=== PATIENT | male | born 1975 | race Two or more races ===

== ENCOUNTER 2016-08-02 23:53 | Inpatient (IN) | payer SELFPAY ==
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
--- NOTE | ~2016-08-02 | CO ---
Unit #: [id number] #: [id number] Patient: COLIN JUAREZ [id number] [address] [place], [place] [address] [id number] I MR#: [id number] NAME: COLIN JUAREZ ROOM: [facility] Age: 43 Sex: M Admission Date: 08/03/2016 : 08/02/1973 Attending Physician: Miguel Mariee M.D. Consultation Date: 08/03/2016 CONSULTATION REPORT REASON FOR CONSULTATION Respiratory failure. HISTORY OF PRESENT ILLNESS A 43-year-old gentleman, whom we have very little if any data on was found in his hammock unresponsive. EMS was called, intubated. He currently cannot add to the history, but apparently he and his family are Hungarian-speaking only. PAST MEDICAL HISTORY Unknown. MEDICATIONS At home are unknown. ALLERGIES Unknown. SOCIAL HISTORY Unknown, but obviously he drinks. REVIEW OF SYSTEMS Unobtainable as he is on the ventilator. PHYSICAL EXAMINATION GENERAL: Reveals a gentleman, who is orally intubated on the respirator, he has a T-max of 100.8, pulse 111, respiratory rate 23, blood pressure is 99/69, 6 feet tall, 208 pounds. HEENT: Pupils are equal, round, and reactive to light. Sclerae anicteric. Head, atraumatic. NECK: Supple. No supraclavicular or cervical adenopathy appreciated. CHEST: Equal breath sounds. No wheeze, stridor, or consolidation. CARDIAC: Reveals regular rate and rhythm. No pathologic murmur, rub, or gallop. ABDOMEN: Soft and nontender. No hepatomegaly or rebound. EXTREMITIES: Reveal no clubbing, cyanosis, or edema. No calf tenderness. SKIN: Warm and dry without rash or diaphoresis. NEUROLOGIC: He is obtunded. DIAGNOSTIC STUDIES IMAGING STUDIES: Chest x-ray left lower lobe pneumonia. LABORATORY RESULTS: Arterial blood gas; pH is 7.32, pCO2 of 47, PO2 of 173 on assist control of 16, tidal volume is 600, 60%, 5 of PEEP. His BUN Unit #: [id number] #: [id number] Patient: COLIN JUAREZ 7, creatinine 0.8. Lactic acid was 3.4, now 3.1. Alcohol was 387. INR normal. White blood cell count was 9.4, now 18.7; hemoglobin 12.6; platelet count normal. Tox screen benzodiazepines, but apparently had received benzodiazepines in the ER. Urinalysis unremarkable. Blood cultures pending. No sputum or urine collected. CARDIOVASCULAR STUDIES: EKG; fairly unremarkable except for sinus tachycardia. IMPRESSION 1. Respiratory failure. 2. Overdose certainly alcohol intoxication suspected other including spice. 3. Likely left lower lobe pneumonia. 4. Elevated lactate. 5. Hypotension suspect sepsis. PLAN Ventilatory support, antibiotics for severe ICU pneumonia, ICU prophylaxis, sepsis protocol. If possible, we will try to obtain better database when possible. Dictated by... García Motley/karuna TD: 08/04/2016 01:26 JOB #: [id number] CONSULTATION REPORT Page 1 of 1 X Markel Rodriguez MD X CONSULTATION REPORT
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
--- NOTE | ~2016-08-02 | FU ---
[facility] Nutrition Therapy DATE: 08/06/16 Patient: COLIN JUAREZ Physician: MICHELLE Address: NPA/UNKNOWN Room/Bed: [address], Zip: [place] [address] Admit Date: 08/03/16 Date of : 75 Height: 6 0 Weight: 210 95.5 NUTRITION MONITORING/FOLLOW-UP: Reason: Follow up Anthropometrics: Wt 08/06: 95.5 kg Labs: No new nutrition-related labs since 08/04 Meds: Protonix, NaCl, therapeutic formula, folic acid, thiamine I&O's: 1818/4366, last BM 08/06 Skin: Reviewed, no changes noted Edema: None noted Diet: Regular Assessment: Chart reviewed, events noted. Pt remains in ICU, was extubated yesterday. Pt has been ordered a regular diet. Pt consumed ~30% of his breakfast this AM per RN report. RN reports this is likely due to a dislike of the food. Pt is speaking with MD at this time. Please see recommendations below. Nutrition problem remains with changes to etiology and evidence. Dx: Inadequate protein-energy intake RT clincal condition, possible dislike of food AEB RN reported poor intake of ~30% of breakfast. Intervention: 1. Regular diet 2. Ensure BID Monitoring, Evaluation and Goals: GOALS IN PROGRESS 1. Oral intake; tolerate >50-75% of meals and supplements 2. Labs; WNL 3. Weight; preserve lean body mass, promote gradual weight loss towards healthy BMI range Recommendations: 1. Continue regular diet. No dietary restrictions recommended at this time. 2. Continue MVI with minerals and supplemental thiamine. 3. Ensure BID for supplemental nutrition. [facility] Nutrition Therapy DATE: 08/06/16 Patient: COLIN JUAREZ Physician: MICHELLE Address: NPA/UNKNOWN Room/Bed: [address], Zip: [place] [address] Admit Date: 08/03/16 Date of : [birth year] Height: 6 0 Weight: 210 95.5 Status: Pt is at mild-moderate nutritional risk. RD will continue to follow. Respectfully, ROSALBA ALLRED RD, LD Food and Nutritional Services [facility] cc: client file
--- NOTE | ~2016-08-02 | CR72 ---
[facility] A Service of [facility] & [facility] RADIOLOGY TEXT RESULTS PATIENT: COLIN JUAREZ LOCATION: [address] : 75 UNIT #: [id number] AGE: [address]: Miguel Mariee MD SEX: M ORDER DR: [id number] [facility] [address] [place], [place] [address] [id number] I MR#: [id number] Acc #: [id number] NAME: COLIN JUAREZ : 08/02/1973 SEX: M STUDY DATE/TIME: 08/03/2016 18:09 UNIT: [facility] ROOM: [facility] STUDY DESCRIPTION: CR Chest Single View Portable Attending Physician: Miguel Mariee M.D. Ordering Physician: Ed Don Godinez M.D. Primary Care Physician: No Primary Care Physician MEDICAL IMAGING REPORT This report is preliminary unless electronic signature is present EXAM Portable chest. HISTORY SUPPLIED Dobbhoff tube placement. FINDINGS An AP view of the chest is obtained. A Dobbhoff feeding tube has been placed. It is in the midportion of the chest. The position may be either in the mid esophagus or could be actually within the trachea extending into the left mainstem bronchus. In either case, I would suggest removal. There is an increase in bibasilar atelectasis. CONCLUSION The Dobbhoff feeding tube appears to be either in the esophagus or the trachea, likely in the trachea and left mainstem bronchus. Suggest removal and replacement. Findings called to the nurse at time of dictation. Dictated by... Korey Gautam M.D. THIS IS AN ELECTRONICALLY VERIFIED REPORT Korey Gautam M.D. at 08/06/2016 7:21 AM MAIA/wilfrido TD: 08/04/2016 11:15 JOB #: [id number] MEDICAL IMAGING REPORT Page 1 of 1 COPY
--- NOTE | ~2016-08-02 | CR72 ---
[facility] A Service of [facility] RADIOLOGY TEXT RESULTS PATIENT: COLIN JUAREZ LOCATION: [address] : 75 UNIT #: [id number] AGE: [address]: Mgiuel Mariee MD SEX: M ORDER DR: [id number] [facility] [address] [place], [place] [address] [id number] I MR#: [id number] Acc #: [id number] NAME: COLIN JUAREZ : 08/02/1973 SEX: M STUDY DATE/TIME: 08/03/2016 7:00 UNIT: [facility] ROOM: [facility] STUDY DESCRIPTION: CR Chest Single View Portable Attending Physician: Miguel Mariee M.D. Ordering Physician: Aminata Ceballos M.D. MEDICAL IMAGING REPORT This report is preliminary unless electronic signature is present EXAM Portable chest 08/03/2016 HISTORY Respiratory failure, intubated today with acute onset of shortness of breath. Patient found down. Possible overdose today. FINDINGS The cardiac and mediastinal structures are stable compared with 08/02/2016. Endotracheal tube has been inserted with the tip approximately 4 cm above the tremayne. There is poor inspiratory result with infiltrate and/or atelectasis in the left lower lobe and there is discoid atelectasis at the right base. The upper lungs are clear. There are no pleural effusions. IMPRESSION 1. Poor inspiratory result with infiltrate and/or atelectasis left lower lobe. 2. Endotracheal tube tip 4 cm above the tremayne. Dictated by... Levi Fowler M.D. THIS IS AN ELECTRONICALLY VERIFIED REPORT Levi Fowler M.D. at 08/06/2016 12:18 PM KRT/pcl TD: 08/03/2016 17:37 JOB #: [id number] [facility] A Service [facility] RADIOLOGY TEXT RESULTS PATIENT: COLIN JUAREZ LOCATION: [facility]07-11 : 75 UNIT #: [id number] AGE: [address]: Miguel Mariee MD SEX: M ORDER DR: MEDICAL IMAGING REPORT Page 1 of 1 COPY
--- NOTE | ~2016-08-02 | CR72 ---
[facility] A Service of [facility] RADIOLOGY TEXT RESULTS PATIENT: ELSA JUAREZ LOCATION: [facility] [address]-89 : [birth year] UNIT #: [id number] AGE: [address]: Aminata Ceballos MD SEX: M ORDER DR: [id number] [facility] [address] [place], [place] [address] [id number] I MR#: [id number] Acc #: [id number] NAME: ELSA JUAREZ : 08/02/1973 SEX: M STUDY DATE/TIME: 08/02/2016 23:10 UNIT: [facility] ROOM: 777[address] STUDY DESCRIPTION: CR Chest Single View Portable Attending Physician: Aminata Ceballos M.D. Ordering Physician: Kvng Cantu M.D. Primary Care Physician: Primary Care Physician No MEDICAL IMAGING REPORT This report is preliminary unless electronic signature is present EXAM Portable chest, 08/02 at 23:10 INDICATIONS Endotracheal tube placement. Patient unresponsive after overdose today. FINDINGS AP portable chest was obtained. No comparison. ET tube mid trachea. Lung volumes are low. There is some mild infiltrate or atelectasis in both bases, left greater than right. Heart size normal. No visible pneumothorax. Dictated by... Christos Aguilar Jr., M.D. THIS IS AN ELECTRONICALLY VERIFIED REPORT Christos Aguilar Jr., M.D. at 08/03/2016 5:57 AM GIOVANNYK/nadira TD: 08/03/2016 03:43 JOB #: [id number] MEDICAL IMAGING REPORT Page 1 of 1 COPY
--- NOTE | ~2016-08-02 | CR72 ---
[facility] A Service of [facility] RADIOLOGY TEXT RESULTS PATIENT: COLIN JUAREZ LOCATION: [address] : 75 UNIT #: [id number] AGE: [address]: Miguel Mariee MD SEX: M ORDER DR: [id number] [facility] [address] [place] [address]. [place], [place] [address] [id number] I MR#: [id number] Acc #: [id number] NAME: COLIN JUAREZ : 1975 SEX: M STUDY DATE/TIME: 08/04/2016 5:30 UNIT: [facility] ROOM: [facility] STUDY DESCRIPTION: CR Chest Single View Portable Attending Physician: Miguel Mariee M.D. Ordering Physician: Markel Rodriguez M.D. Primary Care Physician: No Primary Care Physician MEDICAL IMAGING REPORT This report is preliminary unless electronic signature is present EXAM Portable chest 08/04/2016 HISTORY Respiratory failure and shortness of air for 3 days. COMPARISON Chest 08/03/2016 FINDINGS Frontal chest demonstrates interval repositioning of the enteric feeding tube. The tube now extends below the diaphragm and the tip is not included on the exam. Endotracheal tube is slightly high-riding with tip projecting above the clavicular heads approximately 7 cm proximal to the tremayne. No pneumothorax. Minimal bibasilar atelectasis has improved. Heart size and mediastinum within normal limits. IMPRESSION 1. Interval repositioning of enteric feeding tube. The tube now extends below the diaphragm and the tip is not included on the study. 2. Slightly high-riding endotracheal tube with tip projecting above the clavicular heads approximately 7 cm from the tremayne. 3. Slight interval improvement in minimal bibasilar atelectasis/infiltrate. Dictated by... Jeronimo Moreland M.D. THIS IS AN ELECTRONICALLY VERIFIED REPORT Jeronimo Moreland M.D. at 08/05/2016 8:11 AM ANASTASIYA/joyce [facility] A Service of [facility] RADIOLOGY TEXT RESULTS PATIENT: COLIN JUAREZ LOCATION: [facility]3-22 : 75 UNIT #: [id number] AGE: [address]: Miguel Mariee MD SEX: M ORDER DR: TD: 08/05/2016 00:22 JOB #: [id number] MEDICAL IMAGING REPORT Page 1 of 1 COPY
--- NOTE | ~2016-08-02 | CR72 ---
[facility] A Service of [facility] RADIOLOGY TEXT RESULTS PATIENT: COLIN JUAREZ LOCATION: [address] : 75 UNIT #: [id number] AGE: [address]: Miguel Mariee MD SEX: M ORDER DR: [id number] [facility] [address] [place], [place] [address] [id number] I MR#: [id number] Acc #: [id number] NAME: COLIN JUAREZ : 1975 SEX: M STUDY DATE/TIME: 08/05/2016 4:05 UNIT: [facility] ROOM: [facility] STUDY DESCRIPTION: CR Chest Single View Portable Attending Physician: Miguel Mariee M.D. Ordering Physician: Markel Rodriguez M.D. Primary Care Physician: Primary Care Physician No MEDICAL IMAGING REPORT This report is preliminary unless electronic signature is present EXAM Portable chest 08/05/2016 HISTORY Respiratory failure for 2 days. Ventilator. COMPARISON Chest 08/04/2016 FINDINGS Frontal chest demonstrates interval advancement of the endotracheal tube with tip now projecting 4 cm above the tremayne. Enteric tube is stable. No pneumothorax. Low lung volumes with mild bibasilar atelectasis/infiltrate are unchanged. Heart size and mediastinum are stable. IMPRESSION 1. Interval advancement of endotracheal tube with tip now projecting 4 cm above the tremayne. Enteric tube is stable. No pneumothorax. 2. No significant change in low lung volumes with mild bibasilar atelectasis/infiltrate. Dictated by... Jeronimo Moreland M.D. THIS IS AN ELECTRONICALLY VERIFIED REPORT Jeronimo Moreland M.D. at 08/06/2016 8:38 AM ANASTASIYA/nadira TD: 08/05/2016 19:46 JOB #: [id number] [facility] A Service of [facility] RADIOLOGY TEXT RESULTS PATIENT: COLIN JUAREZ LOCATION: [address] : 75 UNIT #: [id number] AGE: [address]: Miguel Mariee MD SEX: M ORDER DR: MEDICAL IMAGING REPORT Page 1 of 1 COPY
--- NOTE | ~2016-08-02 | US85 ---
[facility] A Service of [facility] RADIOLOGY TEXT RESULTS PATIENT: COLIN JUAREZ LOCATION: [address] : 75 UNIT #: [id number] AGE: [address]: Miguel Mariee MD SEX: M ORDER DR: [id number] [facility] [address] [place], [place] [address] [id number] I MR#: [id number] Acc #: [id number] NAME: COLIN JUAREZ : 1975 SEX: M STUDY DATE/TIME: 08/06/2016 8:56 UNIT: [facility] ROOM: [facility] STUDY DESCRIPTION: [facility] [employer] Attending Physician: Miguel Mariee M.D. Ordering Physician: Miguel Mariee M.D. MEDICAL IMAGING REPORT This report is preliminary unless electronic signature is present EXAM Venous Doppler ultrasound, left leg, 08/06/2016 HISTORY 41-year-old male with left lower extremity pain and swelling at the knee. Fell 2 days ago. TECHNIQUE Venous Doppler ultrasound examination of the left leg was performed using valle-scale, spectral Doppler and color flow Doppler ultrasound imaging. FINDINGS There is no evidence of DVT within the left leg from the groin to the lower calf. Greater saphenous vein is also patent. A large, anechoic fluid collection is present behind the knee measuring at least 9.0 cm in length and up to 6.6 x 5.3 cm axially. This most likely represents a large popliteal cyst. Hematoma is possible but less likely. IMPRESSION 1. Negative examination. No evidence of left lower extremity DVT. 2. Large anechoic fluid collection behind the left knee measuring at least 8.9 cm in size. This most likely represents a large popliteal cyst. Post-traumatic evolving hematoma is possible but less likely. STAT * RESULT Dictated by... Salvador Mcelroy M.D. [facility] A Service of [facility] & [facility] RADIOLOGY TEXT RESULTS PATIENT: COLIN JUAREZ LOCATION: [address]- : 75 UNIT #: [id number] AGE: [address]: Miguel Mariee MD SEX: M ORDER DR: THIS IS AN ELECTRONICALLY VERIFIED REPORT Salvador Mcelroy M.D. at 08/06/2016 3:54 PM Christiano TD: 08/06/2016 09:25 JOB #: [id number] MEDICAL IMAGING REPORT Page 1 of 1 COPY
--- NOTE | ~2016-08-02 | DS ---
Unit #: [id number] #: [id number] Patient: COLIN JUAREZ [id number] [address] [place], [place] [address] [id number] I MR#: [id number] NAME: COLIN JUAREZ ROOM: 577 Age: 41 Sex: M Admission Date: 08/03/2016 : 1975 Discharge Date: 08/08/2016 Attending Physician: Miguel Mariee M.D. Primary Care Physician: No Primary Care Physician DISCHARGE SUMMARY REASON FOR ADMISSION Respiratory failure. HISTORY OF PRESENT ILLNESS/HOSPITAL COURSE The patient is a 43-year-old male, with relatively unremarkable past medical history who presented after he was found by family members unconscious, as well as having apneic episodes. EMS arrived. They attempted to nasally intubate patient unsuccessful, brought to the emergency department. The patient was subsequently orally intubated, placed in the ICU. Consultation was placed to Dr. Rodriguez and associates for evaluation. Initial alcohol level was 387, urine tox was negative. Chest x-ray suspicious for infiltrates. Throughout hospital course, consideration for aspiration pneumonia, as well as drug/possible alcohol intoxication was made, although, urine tox was negative, the patient was questioned if he possibly took another substance, to which he denied later on. Throughout the hospital course, the blood cultures did return back negative. He was gradually weaned from the ventilator. His IV Zosyn was changed into p.o. Augmentin. He, otherwise, has done well from a neurological standpoint. He did complain of some left knee discomfort to which we consulted with Orthopedic Services. The patient underwent aspiration, did not reveal any bacterial growth. He subsequently complained of some right knee discomfort. He underwent an x-ray of the right knee, which did reveal a small amount of effusion at this point in time. He is clinically stable to be discharged from the hospital standpoint. His exam is, otherwise, unremarkable. He will be discharged home after social work follows up with the patient to establish primary care physician. He will also establish as an outpatient with Orthopedic services for the aforementioned bilateral knee pain and/or effusion. He will be given a prescription for Augmentin x2 additional days for consideration of possible clinical aspiration pneumonia. He was counselled extensively on discontinuing alcohol all together. At this point in time, we will discharge him home in stable condition. FINAL DISCHARGE DIAGNOSIS 1. Acute hypoxic respiratory failure, likely secondary to alcohol Unit #: [id number] #: [id number] Patient: COLIN JUAREZ intoxication versus drug overdose. 2. Alcohol abuse. 3. Bilateral knee effusions, status post aspiration of left knee effusion. DISCHARGE MEDICATIONS 1. Augmentin 875 mg p.o. b.i.d. x2 days. 2. Mobic 15 mg p.o. daily p.r.n. knee pain, #30 prescription given. 3. Multivitamin 1 tablet p.o. q.day. DISCHARGE DISPOSITION Home. FOLLOWUP PCP 7-10 days. Dictated by... García Pettit/maria elena TD: 08/08/2016 21:20 JOB #: [id number] DISCHARGE SUMMARY Page 1 of 1 X Miguel Mariee MD X DISCHARGE SUMMARY
--- NOTE | ~2016-08-02 | CT71 ---
[facility] A Service of [facility] RADIOLOGY TEXT RESULTS PATIENT: COLIN JUAREZ LOCATION: [facility]07-11 : 75 UNIT #: [id number] AGE: [address]: Miguel Mariee MD SEX: M ORDER DR: [id number] [facility] [address] [place], [place] [address] [id number] I MR#: [id number] Acc #: [id number] NAME: ELSA JUAREZ : 08/02/1973 SEX: M STUDY DATE/TIME: 08/03/2016 00:50 UNIT: CEDOF ROOM: [id number] STUDY DESCRIPTION: CT Head Wo Contrast Attending Physician: Aminata Ceballos M.D. Ordering Physician: Kvng Cantu M.D. Primary Care Physician: Primary Care Physician No MEDICAL IMAGING REPORT This report is preliminary unless electronic signature is present EXAM Head CT 08/03/2016 at 0050 hours INDICATION Patient found down tonight in yard after overdose. Patient intubated. Laceration on the right side of the head. History of drug abuse. TECHNIQUE This CT examination was performed with one or more of the following radiation dose reduction techniques: automatic exposure control, adjustment of mA and/or kV according to patient size, and iterative reconstruction. FINDINGS Axial images were obtained from base to the vertex without contrast. No comparison. Ventricular size and configuration are normal. There is no acute infarct or hemorrhage. There are no masses. There are no skull fractures. Endotracheal tube is present. Mucous retention cyst noted in the right maxillary sinus. IMPRESSION Negative head CT. Dictated by... Christos Aguilar Jr., M.D. THIS IS AN ELECTRONICALLY VERIFIED REPORT Christos Aguilar Jr., M.D. at 08/06/2016 7:22 AM COLIN/peace TD: 08/03/2016 06:56 JOB #: [id number] [facility] A Service [facility] RADIOLOGY TEXT RESULTS PATIENT: COLIN JUAREZ LOCATION: [facility]3 [facility]3-22 : 75 UNIT #: [id number] AGE: [address]: Miguel Mariee MD SEX: M ORDER DR: MEDICAL IMAGING REPORT Page 1 of 1 COPY
--- NOTE | ~2016-08-02 | CR170 ---
[facility] A Service of [facility] RADIOLOGY TEXT RESULTS PATIENT: COLIN JUAREZ LOCATION: [facility] [place] [facility] 577-01 : 75 UNIT #: [id number] AGE: [address]: Miguel Mariee MD SEX: M ORDER DR: [id number] [facility] [address] [facility] [place], [place] [address] [id number] I MR#: [id number] Acc #: [id number] NAME: COLIN JUAREZ : 1975 SEX: M STUDY DATE/TIME: 08/07/2016 13:42 UNIT: [facility] [place] [facility] ROOM: [facility] STUDY DESCRIPTION: CR Knee 2 Views Rt Attending Physician: Miguel Mariee M.D. Ordering Physician: Miguel Mariee M.D. Primary Care Physician: No Primary Care Physician MEDICAL IMAGING REPORT This report is preliminary unless electronic signature is present EXAM Right knee 08/07/2016 INDICATIONS Knee pain today. No trauma. Prior history of knee infection. FINDINGS 2 views of the right knee were obtained. No fracture or malalignment is seen. There is a joint effusion. No erosive changes are identified. IMPRESSION Small to moderate joint effusion; otherwise, negative right knee. Dictated by... Christos Aguilar Jr., M.D. THIS IS AN ELECTRONICALLY VERIFIED REPORT Christos Aguilar Jr., M.D. at 08/08/2016 7:53 AM COLIN/ema TD: 08/07/2016 17:44 JOB #: [id number] MEDICAL IMAGING REPORT Page 1 of 1 COPY
--- NOTE | ~2016-08-02 | CT52 ---
[facility] A Service of [facility] RADIOLOGY TEXT RESULTS PATIENT: COLIN JUAREZ LOCATION: [address]07-11 : 75 UNIT #: [id number] AGE: [address]: Miguel Mariee MD SEX: M ORDER DR: [id number] [facility] [address] [facility]. [place], [place] [address] [id number] I MR#: [id number] Acc #: [id number] NAME: ELSA JUAREZ : 08/02/1973 SEX: M STUDY DATE/TIME: 08/03/2016 00:47 UNIT: CEDOF ROOM: [id number] STUDY DESCRIPTION: CT Cervical Spine Wo Cont Attending Physician: Aminata Ceballos M.D. Ordering Physician: Kvng Cantu M.D. Primary Care Physician: Primary Care Physician No MEDICAL IMAGING REPORT This report is preliminary unless electronic signature is present EXAM Cervical spine CT 08/03 at 04:47 INDICATIONS Patient found down in yard today. Patient intubated and unresponsive. History of drug abuse. Patient cannot give additional history. TECHNIQUE Axial images were obtained through the cervical spine without contrast. Multiplanar reformats were obtained. No comparison. This CT exam was performed with one or more of the following radiation dose reduction techniques: automatic exposure control, adjustment of mA and/or kV according to patient size, and iterative reconstruction. FINDINGS Endotracheal tube appears well positioned. There is no fracture or malalignment. No significant disc bulging or herniation is seen. There is no central canal or neural foraminal stenosis. IMPRESSION Normal cervical spine CT. Well-positioned ET tube. Dictated by... Christos Aguilar Jr., M.D. THIS IS AN ELECTRONICALLY VERIFIED REPORT Christos Aguilar Jr., M.D. at 08/06/2016 7:22 AM COLIN/mau TD: 08/03/2016 06:54 JOB #: [id number] [facility] A Service of [facility] RADIOLOGY TEXT RESULTS PATIENT: COLIN JUAREZ LOCATION: [address]3-22 : 75 UNIT #: [id number] AGE: [address]: Miguel Mariee MD SEX: M ORDER DR: MEDICAL IMAGING REPORT Page 1 of 1 COPY
--- NOTE | ~2016-08-02 | CR72 ---
[facility] A Service of [facility] RADIOLOGY TEXT RESULTS PATIENT: COLIN JUAREZ LOCATION: [facility] [address] : 75 UNIT #: [id number] AGE: [address]: Miguel Mariee MD SEX: M ORDER DR: [id number] [facility] [address] [facility]. [place], [place] [address] [id number] I MR#: [id number] Acc #: [id number] NAME: COLIN JUAREZ : 1975 SEX: M STUDY DATE/TIME: 08/06/2016 9:13 UNIT: [facility] ROOM: [facility] STUDY DESCRIPTION: CR Chest Single View Portable Attending Physician: Miguel Mariee M.D. Ordering Physician: Miguel Mariee M.D. Primary Care Physician: Primary Care Physician No MEDICAL IMAGING REPORT This report is preliminary unless electronic signature is present EXAM AP portable chest HISTORY SUPPLIED Post extubation. Ventilator management. FINDINGS An AP view is obtained. The patient has been extubated and nasoenteric tube removed. Heart size is normal. There is some discoid atelectasis in the right base which is improved. CONCLUSION Interim extubation. Mild right basilar discoid atelectasis. Dictated by... Korey Gautam M.D. THIS IS AN ELECTRONICALLY VERIFIED REPORT Korey Gautam M.D. at 08/07/2016 7:32 AM MAIA/andrew TD: 08/06/2016 11:02 JOB #: [id number] MEDICAL IMAGING REPORT Page 1 of 1 COPY
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
--- NOTE | ~2016-08-02 | CR169 ---
[facility] A Service of [facility] RADIOLOGY TEXT RESULTS PATIENT: COLIN JUAREZ LOCATION: [facility] [address] : 75 UNIT #: [id number] AGE: [address]: Miguel Mariee MD SEX: M ORDER DR: [id number] [address] [place], [place] [address] [id number] I MR#: [id number] Acc #: [id number] NAME: COLIN JUAREZ : 1975 SEX: M STUDY DATE/TIME: 08/06/2016 15:05 UNIT: [facility] ROOM: [facility] STUDY DESCRIPTION: CR Knee 2 Views Lt Attending Physician: Miguel Mariee M.D. Ordering Physician: Annika Ramirez M.D. Primary Care Physician: No Primary Care Physician MEDICAL IMAGING REPORT This report is preliminary unless electronic signature is present EXAM 2 views left knee 08/06/2016 INDICATIONS 41-year-old male with pain in the left knee for 3 days and swelling. TECHNIQUE 2 views. COMPARISON No comparisons. FINDINGS Mineralization within normal limits. No acute fracture. Small joint effusion. Incidental fabella. IMPRESSION Nonspecific small joint effusion. Otherwise, negative left knee. Dictated by... Jr Martel M.D. THIS IS AN ELECTRONICALLY VERIFIED REPORT Jr Martel M.D. at 08/06/2016 10:46 PM Sindi TD: 08/06/2016 17:04 JOB #: [id number] MEDICAL IMAGING REPORT Page 1 of 1 COPY
--- NOTE | ~2016-08-02 | EE ---
Unit #: [id number] #: [id number] Patient: COLIN JUAREZ [id number] [address] [address] [id number] I MR#: [id number] NAME: COLIN JUAREZ : 1975 SEX: M STUDY DATE/TIME: 08/03/2016 UNIT: [facility] ROOM: [facility] STUDY DESCRIPTION: EEG Attending Physician: Miguel Mariee M.D. Referring Physician: Miguel Mariee M.D. Primary Care Physician: No Primary Care Physician NEURODIAGNOSTICS REPORT PROCEDURE PERFORMED EEG. REASON FOR STUDY Respiratory failure. EEG DESCRIPTION This is an inpatient, ER, digitally recorded, multi-montage, adult EEG with leads placed according to the International 10-20 system. Hyperventilation and photic stimulation do not seem to have been done. PROCEDURE REPORT This EEG shows 9-10 Hz posterior background. There were some transients seen between C3 and P3. At times correlation with EKG was seen. Other times it looks like transients of sleep in the centroparietal region on both sides. Nothing clearly suggesting clearcut interictal discharges or clinical events. The patient did fall asleep, and stage II sleep was seen. I do not see any mention of hyperventilation or photic stimulation or the patient's clinical condition. IMPRESSION This EEG looks normal with normal waveforms. There were some transients seen on the left side, which are nonspecific. Please clinically correlate with the patient's history and imaging studies and treat as indicated. Dictated by... García Millan/bear TD: 08/06/2016 08:40 JOB #: [id number] Unit #: [id number] #: [id number] Patient: COLIN JUAREZ NEURODIAGNOSTICS REPORT Page 1 of 1 X Jay Castillo MD NEURODIAGNOSTICS REPORT
--- NOTE | ~2016-08-02 | EKG ---
PATIENT: ELSA JUAREZ UNIT #: [id number] Ventricular Rate: 109 BPM Atrial Rate: 109 BPM P-R Interval: 164 ms QRS Duration: 104 ms Q-T Interval: 330 ms QTC Calculation(Bezet): 444 ms P Gilbert: 38 degrees Calculated R Gilbert: -2 degrees Calculated T Gilbert: 9 degrees Diagnosis Line: Sinus tachycardia Diagnosis Line: Otherwise normal ECG Diagnosis Line: No previous ECGs available Diagnosis Line: Confirmed by RAMA NUNEZ MD ([id number]) on Diagnosis Line: 08/04/2016 4:45:11 PM INTERPRETING MD: CARLENE
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
[2016-08-02 23:07] LABS: ARTERIAL BLOOD GAS CARBOXY HB 0.7 %sat (0.0-9.0); ARTERIAL BLOOD GAS HCO3 25.9 mmol/L; ARTERIAL BLOOD GAS MET HB 0.9 %sat (0.0-2.0); ARTERIAL BLOOD GAS pH 7.305 (7.350-7.450)
[2016-08-02 23:28] LABS: BASOPHIL# 0.1 X10e3 (0-0.3); EOSINOPHIL# 0.6 X10e3 (0-0.7); EOSINOPHIL% 6.9 % (0.0-7.0); HEMATOCRIT 42.7 % (38.0-50.0); HEMOGLOBIN 13.8 gm/dL (13.0-16.0); LYMPHOCYTE# 5.2 X10e3 (1.0-3.5); LYMPHOCYTE% 55.1 % (17.0-45.0); MEAN CELL VOLUME 87.7 FL (83-96); MEAN CORPUSCULAR HEMOGLOBIN 28.2 PG (28-34); MEAN CORPUSCULAR HGB CONC 32.2 g/dL (30-36); MEAN PLATELET VOLUME 8.9 FL (6.5-11.5); MONOCYTE# 0.5 X10e3 (0-1.0); MONOCYTE% 5.7 % (3.0-12.0); NEUTROPHIL# 2.9 X10e3 (1.5-7.1); NEUTROPHIL% 31.3 % (40-75); PLATELET COUNT 309 X10e3 (140-420); RED BLOOD COUNT 4.87 X10e (3.90-5.60); RED CELL DISTRIBUTION WIDTH 16.1 % (11.0-15.5); WHITE BLOOD COUNT 9.4 X10e3 (4.0-10.5)
[2016-08-02 23:29] LABS: DIFF IND YES
[2016-08-02 23:37] LABS: PARTIAL THROMBOPLASTIN TIME 23.8 SECONDS (23.5-31.3); PROTHROMBIN TIME (PATIENT) 10.5 SECONDS (9.6-11.5)
[2016-08-02 23:38] LABS: ARTERIAL BLOOD GAS ALLEN TEST N; ARTERIAL BLOOD GAS ART SITE LEFT FEMORAL; ARTERIAL DRAW? YES
[2016-08-02 23:39] LABS: ARTERIAL BLOOD GAS DELIVERY VENT; ARTERIAL BLOOD GAS VENT MODE AC
[2016-08-02 23:52] LABS: ACETAMINOPHEN <10 ug/mL; ALKALINE PHOSPHATASE 73 U/L (32-92); ALT (SGPT) 34 U/L (10-40); AST (SGOT) 66 U/L (10-42); BILIRUBIN,TOTAL 0.8 mg/dL (0.2-2.0); BLOOD UREA NITROGEN 7 mg/dL (9-23); CALCIUM SERUM 8.5 mg/dL (8.4-10.2); CARBON DIOXIDE 24 mmol/L (22-31); CHLORIDE 104 mmol/L (100-111); GLOM FILT RATE Estimated 91.8 mL/min (>60); GLUCOSE FASTING 138 mg/dL (70-110); POTASSIUM 3.6 mmol/L (3.5-5.1); PROTEIN TOTAL SERUM 7.3 g/dL (6.0-8.3); SALICYLATE <4.0 mg/dL; SODIUM 141 mmol/L (135-145); URINE APPEARANCE CLEAR; URINE BILIRUBIN NEG (NEG); URINE BLOOD NEG (NEG); URINE COLOR YELLOW; URINE GLUCOSE NEG (NEG); URINE KETONE NEG (NEG); URINE LEUKOCYTE ESTERASE NEG (NEG); URINE NITRATE NEG (NEG); URINE PH 5.5 (5-8); URINE PROTEIN NEG (NEG); URINE SPECIFIC GRAVITY 1.003 (1.003-1.035); URINE UROBILINOGEN 0.2 MG/DL (NEG)
[2016-08-02 23:54] LABS: ALCOHOL BLOOD 387 mg/dL (0)
[2016-08-02 23:54] LABS: POC - CKMB 1.7 ng/mL (0.0-7.9); POC - TROPONIN <0.05 ng/mL (<=0.05)
[2016-08-02 23:55] LABS: ANISOCYTOSIS SL; PLATELET ESTIMATE NORMAL (NORMAL)
[2016-08-02 23:56] LABS: CULTURE INDICATED? NO
[2016-08-03 00:12] LABS: AMPHETAMINE NEG (NEG); BARBITURATES NEG (NEG); BENZODIAZEPINES NEG (NEG); COCAINE NEG (NEG); MARIJUANA NEG (NEG); OPIATES NEG (NEG); TRICYCLIC ANTIDEPRESSANTS NEG (NEG); U METHADONE NEG (NEG)
[2016-08-03 03:27] LABS: AMPHETAMINE NEG (NEG); BARBITURATES NEG (NEG); BENZODIAZEPINES POS (NEG); COCAINE NEG (NEG); MARIJUANA NEG (NEG); OPIATES NEG (NEG); TRICYCLIC ANTIDEPRESSANTS NEG (NEG); U METHADONE NEG (NEG)
[2016-08-03 03:37] LABS: ARTERIAL BLD GAS O2 SATURATION 97.5 % (90.0-100.0); ARTERIAL BLOOD GAS CARBOXY HB 0.4 %sat (0.0-9.0); ARTERIAL BLOOD GAS HCO3 25.1 mmol/L; ARTERIAL BLOOD GAS MET HB 1.3 %sat (0.0-2.0); ARTERIAL BLOOD GAS PCO2 47.6 mmHg (35.0-45.0); ARTERIAL BLOOD GAS pH 7.329 (7.350-7.450)
[2016-08-03 03:38] LABS: ARTERIAL BLOOD GAS ART SITE LEFT FEMORAL; ARTERIAL BLOOD GAS DELIVERY VENT; ARTERIAL BLOOD GAS VENT MODE AC; ARTERIAL DRAW? YES
[2016-08-03 08:00] LABS: ALBUMIN SERUM 3.3 g/dL (3.5-5.0); BILIRUBIN,TOTAL 0.4 mg/dL (0.2-2.0); BUN/CREATININE RATIO 8.75; CREATININE SERUM 0.8 mg/dL (0.6-1.4); GLOM FILT RATE Estimated 109.5 mL/min (>60); POTASSIUM 4.3 mmol/L (3.5-5.1); PROTEIN TOTAL SERUM 6.1 g/dL (6.0-8.3)
[2016-08-03 08:19] LABS: %MB 1.4 % (0.0-4.0); MB 3.7 ng/ml
[2016-08-03 08:38] LABS: BASOPHIL% 0.1 % (0-2.5); EOSINOPHIL# 0.1 X10e3 (0-0.7); EOSINOPHIL% 0.3 % (0.0-7.0); HEMATOCRIT 39.3 % (38.0-50.0); HEMOGLOBIN 12.6 gm/dL (13.0-16.0); LYMPHOCYTE% 5.3 % (17.0-45.0); MEAN CELL VOLUME 88.2 FL (83-96); MEAN CORPUSCULAR HEMOGLOBIN 28.1 PG (28-34); MEAN CORPUSCULAR HGB CONC 31.9 g/dL (30-36); MEAN PLATELET VOLUME 8.9 FL (6.5-11.5); MONOCYTE# 1.1 X10e3 (0-1.0); MONOCYTE% 5.6 % (3.0-12.0); NEUTROPHIL# 16.6 X10e3 (1.5-7.1); NEUTROPHIL% 88.7 % (40-75); PLATELET COUNT 247 X10e3 (140-420); RED BLOOD COUNT 4.46 X10e (3.90-5.60); RED CELL DISTRIBUTION WIDTH 16.2 % (11.0-15.5)
[2016-08-03 08:40] LABS: WHITE BLOOD COUNT 18.7 X10e3 (4.0-10.5)
[2016-08-03 08:43] LABS: DIFF IND YES
[2016-08-03 09:32] LABS: ANISOCYTOSIS SL; PLATELET ESTIMATE NORMAL (NORMAL); RBC NORMAL YES
[2016-08-03] MEDS ORDERED: NO MEDICATIONS (09:33)
[2016-08-03 10:24] LABS: ARTERIAL BLD GAS O2 SATURATION 97.3 % (90.0-100.0); ARTERIAL BLOOD GAS HCO3 26.3 mmol/L; ARTERIAL BLOOD GAS MET HB 1.1 %sat (0.0-2.0); ARTERIAL BLOOD GAS PCO2 41.9 mmHg (35.0-45.0); ARTERIAL BLOOD GAS pH 7.407 (7.350-7.450)
[2016-08-03 10:25] LABS: ARTERIAL BLOOD GAS ALLEN TEST NORMAL; ARTERIAL BLOOD GAS ART SITE LEFT RADIAL; ARTERIAL DRAW? YES
[2016-08-03 10:26] LABS: ARTERIAL BLOOD GAS DELIVERY VENT; ARTERIAL BLOOD GAS VENT MODE AC
[2016-08-04 03:54] LABS: ARTERIAL BLD GAS O2 SATURATION 97.5 % (90.0-100.0); ARTERIAL BLOOD GAS CARBOXY HB 0.5 %sat (0.0-9.0); ARTERIAL BLOOD GAS MET HB 1.2 %sat (0.0-2.0); ARTERIAL BLOOD GAS PCO2 41.8 mmHg (35.0-45.0); ARTERIAL BLOOD GAS pH 7.434 (7.350-7.450)
[2016-08-04 04:03] LABS: ARTERIAL BLOOD GAS ALLEN TEST NORMAL; ARTERIAL BLOOD GAS ART SITE LEFT RADIAL; ARTERIAL BLOOD GAS DELIVERY VENT; ARTERIAL BLOOD GAS VENT MODE AC; ARTERIAL DRAW? YES
[2016-08-04 05:46] LABS: BASOPHIL% 0.4 % (0-2.5); EOSINOPHIL# 0.2 X10e3 (0-0.7); LYMPHOCYTE# 1.7 X10e3 (1.0-3.5); LYMPHOCYTE% 14.5 % (17.0-45.0); MEAN CORPUSCULAR HEMOGLOBIN 28.2 PG (28-34); MEAN CORPUSCULAR HGB CONC 32.4 g/dL (30-36); MEAN PLATELET VOLUME 8.9 FL (6.5-11.5); MONOCYTE# 0.7 X10e3 (0-1.0); MONOCYTE% 5.8 % (3.0-12.0); NEUTROPHIL# 8.8 X10e3 (1.5-7.1); NEUTROPHIL% 77.3 % (40-75); PLATELET COUNT 206 X10e3 (140-420); RED BLOOD COUNT 4.25 X10e (3.90-5.60); RED CELL DISTRIBUTION WIDTH 15.8 % (11.0-15.5); WHITE BLOOD COUNT 11.4 X10e3 (4.0-10.5)
[2016-08-04 05:53] LABS: DIFF IND NO
[2016-08-04 06:43] LABS: BILIRUBIN,TOTAL 1.2 mg/dL (0.2-2.0); CALCIUM SERUM 8.4 mg/dL (8.4-10.2); GLOM FILT RATE Estimated 91.8 mL/min (>60); MAGNESIUM 1.7 mg/dL (1.6-3.0); PHOSPHOROUS 2.8 mg/dL (2.5-4.6); POTASSIUM 4.1 mmol/L (3.5-5.1); PROTEIN TOTAL SERUM 6.2 g/dL (6.0-8.3)
[2016-08-05 10:02] LABS: ARTERIAL BLD GAS O2 SATURATION 97.2 % (90.0-100.0); ARTERIAL BLOOD GAS ALLEN TEST NORMAL; ARTERIAL BLOOD GAS ART SITE RIGHT RADIAL; ARTERIAL BLOOD GAS DELIVERY VE; ARTERIAL BLOOD GAS HCO3 29.2 mmol/L; ARTERIAL BLOOD GAS MET HB 0.9 %sat (0.0-2.0); ARTERIAL BLOOD GAS PCO2 44.6 mmHg (35.0-45.0); ARTERIAL BLOOD GAS pH 7.425 (7.350-7.450); ARTERIAL DRAW? YES
[2016-08-05 10:03] LABS: ARTERIAL BLOOD GAS VENT MODE CPAP
[2016-08-06 10:57] LABS: URINE APPEARANCE CLEAR; URINE BLOOD NEG (NEG); URINE COLOR DK YELLOW; URINE GLUCOSE NEG (NEG); URINE KETONE 3+ (NEG); URINE LEUKOCYTE ESTERASE NEG (NEG); URINE NITRATE NEG (NEG); URINE PH 6.5 (5-8); URINE PROTEIN 1+ (NEG); URINE SPECIFIC GRAVITY 1.036 (1.003-1.035)
[2016-08-06 10:58] LABS: BASOPHIL# 0.1 X10e3 (0-0.3); BASOPHIL% 0.5 % (0-2.5); DIFF IND NO; EOSINOPHIL# 0.1 X10e3 (0-0.7); EOSINOPHIL% 0.5 % (0.0-7.0); HEMATOCRIT 39.2 % (38.0-50.0); HEMOGLOBIN 12.8 gm/dL (13.0-16.0); MEAN CELL VOLUME 87.9 FL (83-96); MEAN CORPUSCULAR HEMOGLOBIN 28.6 PG (28-34); MEAN CORPUSCULAR HGB CONC 32.6 g/dL (30-36); MEAN PLATELET VOLUME 9.6 FL (6.5-11.5); MONOCYTE# 0.9 X10e3 (0-1.0); MONOCYTE% 6.3 % (3.0-12.0); NEUTROPHIL# 12.2 X10e3 (1.5-7.1); NEUTROPHIL% 85.7 % (40-75); PLATELET COUNT 214 X10e3 (140-420); RED BLOOD COUNT 4.47 X10e (3.90-5.60); RED CELL DISTRIBUTION WIDTH 15.8 % (11.0-15.5); WHITE BLOOD COUNT 14.3 X10e3 (4.0-10.5)
[2016-08-06 11:00] LABS: URBCS1 AUWI 0-2 /[HPF] (0-2); URINE BACTERIA AUWI NEG (NEGATIVE); URINE SQUAMOUS EPITHELIAL CELL NONE SEEN /[HPF]; UWBCS1 AUWI 0-2 (0-5)
[2016-08-06 11:03] LABS: URINE BILIRUBIN NEG (NEG)
[2016-08-06 14:51] LABS: BODY FLUID SOURCE SYNOVIAL
[2016-08-06 14:52] LABS: BODY FLUID APPEARANCE HAZY
[2016-08-06 16:36] LABS: BF CRYSTAL EXAM NO CRYSTALS SEEN
[2016-08-06 17:26] LABS: BF TOTAL NUCLEATED CELL COUNT 37703 CMM (0-100); BODY FLUID RBC <10000 CMM
[2016-08-07 05:39] LABS: BASOPHIL% 0.3 % (0-2.5); EOSINOPHIL# 0.1 X10e3 (0-0.7); EOSINOPHIL% 0.8 % (0.0-7.0); HEMATOCRIT 38.1 % (38.0-50.0); HEMOGLOBIN 12.4 gm/dL (13.0-16.0); LYMPHOCYTE# 1.3 X10e3 (1.0-3.5); LYMPHOCYTE% 10.5 % (17.0-45.0); MEAN CELL VOLUME 86.8 FL (83-96); MEAN CORPUSCULAR HEMOGLOBIN 28.4 PG (28-34); MEAN CORPUSCULAR HGB CONC 32.6 g/dL (30-36); MEAN PLATELET VOLUME 9.2 FL (6.5-11.5); MONOCYTE% 7.7 % (3.0-12.0); NEUTROPHIL# 10.2 X10e3 (1.5-7.1); NEUTROPHIL% 80.7 % (40-75); PLATELET COUNT 222 X10e3 (140-420); RED BLOOD COUNT 4.38 X10e (3.90-5.60); RED CELL DISTRIBUTION WIDTH 15.5 % (11.0-15.5); WHITE BLOOD COUNT 12.6 X10e3 (4.0-10.5)
[2016-08-07 05:47] LABS: DIFF IND NO
[2016-08-07 06:55] LABS: CALCIUM SERUM 8.9 mg/dL (8.4-10.2); GLOM FILT RATE Estimated 93.1 mL/min (>60); POTASSIUM 3.5 mmol/L (3.5-5.1)
[2016-08-07 07:30] LABS: HA AB IGM (HEPPAN) Nonreactive (()); HB CORE AB IGM (HEPPAN) Nonreactive (Nonreactive); HB S AG (HEPPAN) Nonreactive (Nonreactive); HEP C AB (HEPPAN) Nonreactive (Nonreactive); HEP C AB SIGNAL TO CUTOFF 0.03 ratio (<1.00)
[2016-08-08 11:52] LABS: BF CRYSTAL EXAM URIC ACID; BODY FLUID APPEARANCE TURBID; BODY FLUID SOURCE SYNOVIAL
[2016-08-08 11:53] LABS: BF TOTAL NUCLEATED CELL COUNT 22500 CMM (0-100)
[2016-08-08 11:54] LABS: BODY FLUID RBC 238 CMM
[2016-08-08] MEDS ORDERED: AUGMENTIN PO (12:55)
[2016-08-08] MEDS ORDERED: MOBIC15 MG PO (12:57)
== END 2016-08-08 15:57 | disposition home or self-care (01) | DRG 896 ==
LOC: CED 23:53 → CEDOF 08-03 02:45 → CICCU3 08-03 09:05 → C5C 08-06 22:39
PROVIDERS: Emergency Medicine; Family Medicine; Internal Medicine; Orthopaedic Surgery
PROC: 0BH17EZ Insertion of Endotracheal Airway into Trachea, Via Natural or Artificial Opening (ICD-10-PCS; principal; 2016-08-03)
PROC: 5A1945Z Respiratory Ventilation, 24-96 Consecutive Hours (ICD-10-PCS; 2016-08-03)
PROC: 0SBD3ZX Excision of Left Knee Joint, Percutaneous Approach, Diagnostic (ICD-10-PCS; 2016-08-06)
DX: F10.129 Alcohol abuse with intoxication, unspecified (principal); J69.0 Pneumonitis due to inhalation of food and vomit; J96.01 Acute respiratory failure with hypoxia; M25.462 Effusion, left knee; Z89.421 Acquired absence of other right toe(s); F19.10 Other psychoactive substance abuse, uncomplicated; M71.22 Synovial cyst of popliteal space [Baker], left knee; Z71.41 Alcohol abuse counseling and surveillance of alcoholic; Y90.8 Blood alcohol level of 240 mg/100 ml or more
CPT/HCPCS: 31500; 36600; 51702; 70450; 71010; 72125; 73560; 74000; 80048; 80053; 80074; 80307; 81003; 82140; 82550; 82553; 82803; 82947; 83605; 83735; 84100; 84484; 85025; 85610; 85652; 85730; 86140; 87040; 87070; 87075; 87086; 87205; 87806; 89051; 89060; 92610; 93005; 93971; 94002; 94003; 94760; 94761; 95816; 99291; C9113; G0480; J1650; J1956; J2543; J3010; J3411